=== PATIENT | male | born 1950 | race Hispanic/Latino ===

== ENCOUNTER 2018-06-05 11:16 | Emergency (ER) | payer MEDICARE ==
[2018-06-05 11:34] VITALS: BP 115/72
== END 2018-06-05 13:00 | disposition left against medical advice (07) ==
LOC: ED 11:16
DX: R05 Cough (principal); Z53.21 Procedure and treatment not carried out due to patient leaving prior to being seen by health care provider

== ENCOUNTER 2019-05-27 19:29 | Emergency (ER) | payer MEDICARE | END 2019-05-27 20:00 | disposition left against medical advice (07) | LOC: ED 19:29 | DX: H92.01 Otalgia, right ear (principal); Z53.21 Procedure and treatment not carried out due to patient leaving prior to being seen by health care provider ==

== ENCOUNTER 2020-06-02 21:55 | Emergency (ER) | payer MEDICARE ==
[2020-06-02] MEDS ORDERED: SODIUM CHLORIDE 0.9% 1000 ML 1,000 ML IV ONE (21:57)
[2020-06-02] MEDS ORDERED: ONDANSETRON 4 MG/2 ML INJ IV ONE (21:57)
[2020-06-02] MEDS ORDERED: ONDANSETRON 4 MG/2 ML INJ ONE (21:59)
--- NOTE | 2020-06-02 22:05 | Emergency Department Report ---
ED Alcohol HPI - General Chief Complaint: Altered Mental Status Stated Complaint: AMS Time Seen by Provider: 06/02/20 21:57 Source: patient, EMS Mode of arrival: Stretcher Limitations: Altered Mental Status - History of Present Illness Initial Comments: This is a 70-year-old male with history of COPD and abdominal hernia who presents with decreased responsiveness. Patient drank 5 beers today. He significant other told EMS that he became less responsive. He was found on the floor at local [facility] by EMS lethargic. Blood glucose was normal. Room air saturation 96% on room air. He does not require home oxygen. Patient awakened slightly in the ambulance. He gave EMS a brief history. Patient is now somnolent. MD Complaint: alcohol intoxication Last Drink: just [employer] Recent Trauma: No Associated Symptoms: other (Decreased responsiveness) - Related Data Previous Rx's Medication Instructions Recorded Last Taken Type Acetaminophen/Codeine [Tylenol 1 tab PO Q6H PRN #10 tab 03/31/20 Unknown Rx /Codeine # 3 tab] Menthol/Camphor [[place] 1 applicatio TP BID #50 oint...g. 03/31/20 Unknown Rx Ointment] methOCARBAMOL [Robaxin TAB] 500 mg PO BID PRN #14 tab 03/31/20 Unknown Rx Allergies Allergy/AdvReac Type Severity Reaction Status Date / Time cephalexin [From Keflex] Allergy Itching Verified 06/05/18 11:30 diphenhydramine Allergy Itching Verified 06/05/18 11:30 [From Benadryl] erythromycin base Allergy Itching Verified 06/05/18 11:30 ED Review of Systems ROS: Stated complaint: AMS Other details as noted in HPI Comment: Unobtainable due to pts medical conditions (Altered mental status, acute intoxication) ED Past Medical Hx - Past Medical History Previous Medical History?: Yes Hx COPD: Yes Additional medical history: Back injury/pain - Surgical History Past Surgical History?: Yes Hx Appendectomy: Yes Additional Surgical History: partial removal of lung/ right arm/ t&a - Social History Smoking Status: Current Every Day Smoker Substance Use Type: Alcohol, Prescribed - Medications Home Medications: Home Medications Medication Instructions Recorded Confirmed Last Taken Type Acetaminophen/Codeine [Tylenol 1 tab PO Q6H PRN #10 tab 03/31/20 Unknown Rx /Codeine # 3 tab] Menthol/Camphor [[place] 1 applicatio TP BID #50 oint...g. 03/31/20 Unknown Rx Ointment] methOCARBAMOL [Robaxin TAB] 500 mg PO BID PRN #14 tab 03/31/20 Unknown Rx ED Physical Exam - General Limitations: Altered Mental Status General appearance: appears intoxicated, lethargic, other (Rolling around in bed purposeful movement) - Head Head exam: Present: atraumatic, normocephalic - Eye Eye exam: Present: PERRL, conjunctival injection - ENT ENT exam: Present: normal orophraynx, mucous membranes moist - Neck Neck exam: Present: normal inspection, full ROM - Respiratory Respiratory exam: Present: wheezes, other (Posterior back: Right lower base wheezes). Absent: respiratory distress, rales, rhonchi, stridor, accessory muscle use, decreased breath sounds, prolonged expiratory - Cardiovascular Cardiovascular Exam: Present: regular rate, normal rhythm, normal heart sounds. Absent: systolic murmur, diastolic murmur - GI/Abdominal GI/Abdominal exam: Present: soft, other (Obese abdomen). Absent: distended, tenderness, guarding, rebound - Extremities Exam Extremities exam: Present: normal inspection - Neurological Exam Neurological exam: Present: altered - Psychiatric Psychiatric exam: Present: flat affect - Skin Skin exam: Present: warm, dry, intact, normal color ED Course Vital Signs 06/02/20 06/02/20 06/02/20 22:03 22:08 22:15 Temperature 97.2 F L Pulse Rate 72 69 Respiratory 16 15 Rate Blood Pressure 100/60 104/59 O2 Sat by Pulse 89 91 88 Oximetry 06/02/20 06/02/20 06/02/20 22:30 22:38 23:15 Temperature Pulse Rate 65 63 Respiratory 13 16 Rate Blood Pressure 101/74 94/54 O2 Sat by Pulse 95 92 95 Oximetry 06/02/20 06/03/20 23:45 01:48 Temperature Pulse Rate 60 Respiratory 14 Rate Blood Pressure 98/51 98/58 O2 Sat by Pulse 95 93 Oximetry - Reevaluation(s) Reevaluation #1: 06/02/20 22:07 Nurse reports to me that patient is now awake. He is requesting pain medication. He informed the nurse that he right drink 3-4 beers. Reevaluation #2: 06/02/20 22:26 Nurse informed me that patient had room air oxygen saturation 84%. This level is hypoxic. On 2 L nasal cannula, repeat blood oxygen saturation 93% which is improved. Patient easily arousable. When asked to change position, he hien robles. ED Medical Decision Making - Lab Data Result diagrams: 06/02/20 22:02 06/02/20 22:02 Laboratory Results - last 24 hr 06/02/20 06/02/20 06/02/20 22:02 22:02 22:02 WBC 7.4 RBC 4.37 Hgb 14.4 Hct 42.8 MCV 98 H MCH 33 H MCHC 34 RDW 13.8 Plt Count 195 Lymph % (Auto) 19.9 [place] % (Auto) 9.1 H Eos % (Auto) 4.6 H Baso % (Auto) 0.8 Lymph # 1.5 [place] # 0.7 Eos # 0.3 Baso # 0.1 Seg Neutrophils % 65.6 Seg Neutrophils # 4.8 Sodium 136 L Potassium 3.7 Chloride 98.0 Carbon Dioxide 20 L Anion Gap 22 BUN 6 L Creatinine 0.8 Estimated GFR > 60 BUN/Creatinine Ratio 8 Glucose 134 H Calcium 9.1 Total Bilirubin 0.20 AST 21 ALT 23 Alkaline Phosphatase 69 Total Protein 6.6 Albumin 3.7 L Albumin/Globulin Ratio 1.3 Plasma/Serum Alcohol 0.22 H - EKG Data -: EKG Interpreted by Co EKG shows normal: sinus rhythm, axis, intervals, ST-T waves Rate: normal - EKG Data 06/02/20 22:35 EKG interpreted by la EKG obtained 2228 Normal sinus rhythm rate 60 bpm normal axis normal intervals poor R wave progression anterior leads QS complexes V1 V2 no ST elevation nonischemic T wave pattern - Medical Decision Making Patient presents with acute alcohol intoxication. Patient did not have syncopal episode. He did have decreased level of consciousness. Blood alcohol level 0.22. Patient will be discharged once he is awake and ambulatory. Critical care attestation.: If time is entered above; I have spent that time in minutes in the direct care of this critically ill patient, excluding procedure time. ED Disposition Clinical Impression: Acute alcohol intoxication Disposition: DC-01 TO HOME OR SELFCARE Is pt being admited?: No Does the pt Need Aspirin: No Condition: Stable Instructions: Alcohol Intoxication (ED) Referrals: MARY [facility] [Other] - 3-5 Days
[2020-06-02 22:09] LABS: Basophils # (Auto) 0.1 K/mm3 (0.0-0.1); Basophils % (Auto) 0.8 % (0.0-1.8); Eosinophils # (Auto) 0.3 K/mm3 (0.0-0.4); Eosinophils % (Auto) 4.6 % (0.0-4.3); Hematocrit 42.8 % (35.5-45.6); Hemoglobin 14.4 gm/dl (11.8-15.2); Lymphocytes # (Auto) 1.5 K/mm3 (1.2-5.4); Lymphocytes % (Auto) 19.9 % (13.4-35.0); Mean Corpuscular HGB Conc 34 % (32-34); Mean Corpuscular Volume 98 fl (84-94); Monocytes # (Auto) 0.7 K/mm3 (0.0-0.8); Monocytes % (Auto) 9.1 % (0.0-7.3); Platelet Count 195 K/mm3 (140-440); Red Blood Count 4.37 M/mm3 (3.65-5.03); Red Cell Distribution Width 13.8 % (13.2-15.2)
[2020-06-02 22:32] LABS: Alanine Aminotransferase 23 units/L (7-56); Albumin 3.7 g/dL (3.9-5); BUN/Creatinine Ratio 8; Blood Urea Nitrogen 6 mg/dL (9-20); Calcium 9.1 mg/dL (8.4-10.2); Hemolysis Index 14
[2020-06-03 06:37] VITALS: BP 95/48
== END 2020-06-03 06:10 | disposition home or self-care (01) ==
LOC: ED 21:55
DX: F10.129 Alcohol abuse with intoxication, unspecified (principal); J44.9 Chronic obstructive pulmonary disease, unspecified; F17.200 Nicotine dependence, unspecified, uncomplicated; R41.82 Altered mental status, unspecified; Z90.49 Acquired absence of other specified parts of digestive tract; Z98.890 Other specified postprocedural states; Z79.899 Other long term (current) drug therapy; Z88.8 Allergy status to other drugs, medicaments and biological substances
CPT/HCPCS: 36415; 80053; 85025; 93005; 96361; 96374; 99284; J2405; J7030; 80320; G0480

== ENCOUNTER 2020-09-11 20:07 | Emergency (ER) | payer MEDICARE ==
[2020-09-11 20:43] VITALS: BP 122/84
== END 2020-09-12 03:16 | disposition left against medical advice (07) ==
LOC: ED 20:07
DX: M25.531 Pain in right wrist (principal); Z53.21 Procedure and treatment not carried out due to patient leaving prior to being seen by health care provider

== ENCOUNTER 2021-05-21 12:52 | Emergency (ER) | payer MEDICARE, MEDICAID ==
[2021-05-21 13:15] VITALS: BP 113/81
--- NOTE | 2021-05-21 13:37 | XRay Report ---
CHEST 2 VIEWS INDICATION: Chest Pain. COMPARISON: None FINDINGS: Support devices: None. Heart: Borderline to mild cardiomegaly Lungs/pleura: Underlying emphysematous changes are suspected. Surgical sutures are noted in the left upper lobe, correlate with history. No evidence for acute infiltrate, pleural effusion or pneumothor ax. Additional findings: None. IMPRESSION: No acute findings. COPD. Borderline heart size. Signer Name: Zack Valles Jr, MD Signed: 05/21/2021 1:32 PM Workstation Name: [id number]
[2021-05-21 14:17] LABS: Basophils % (Auto) 0.7 % (0.0-1.8); Eosinophils # (Auto) 0.3 K/mm3 (0.0-0.4); Hematocrit 46.7 % (35.5-45.6); Hemoglobin 15.6 gm/dl (11.8-15.2); Lymphocytes # (Auto) 1.1 K/mm3 (1.2-5.4); Lymphocytes % (Auto) 15.9 % (13.4-35.0); Mean Corpuscular HGB Conc 33 % (32-34); Mean Corpuscular Volume 99 fl (84-94); Monocytes # (Auto) 0.7 K/mm3 (0.0-0.8); Monocytes % (Auto) 10.2 % (0.0-7.3); Platelet Count 200 K/mm3 (140-440); Red Blood Count 4.72 M/mm3 (3.65-5.03)
[2021-05-21 14:21] LABS: Alanine Aminotransferase 27 units/L (7-56); Albumin 4.2 g/dL (3.9-5); BUN/Creatinine Ratio 14; Blood Urea Nitrogen 11 mg/dL (9-20); Calcium 9.2 mg/dL (8.4-10.2); Hemolysis Index 11
[2021-05-21 14:25] LABS: INR 0.89 (0.87-1.13); Partial Thromboplastin Time 28.2 Sec. (24.2-36.6)
--- NOTE | 2021-05-21 15:07 | Emergency Department Report ---
Blank Doc - Documentation Documentation: 70-year-old male that presents with shortness of breath and chest tightness. Patient has history of COPD. 1- This is a initial triage assessment/medical screening only. Full assessment and work-up will be completed once the patient is in proper hospital gown, ED bed and in a private room setting. This initial assessment/diagnostic orders/clinical plan/ treatment(s) is/are subject to change based on pt's health status, clinical progression and re-assessment by fellow clinical providers in the ED. Further treatment and workup at subsequent clinical providers discretion. Patient/guardians urged not to elope from ED as their condition may be serious if not clinically assessed and managed. 2-cardiac work-up
== END 2021-05-22 18:00 | disposition left against medical advice (07) ==
LOC: ED 12:52
DX: R06.02 Shortness of breath (principal); Z53.21 Procedure and treatment not carried out due to patient leaving prior to being seen by health care provider
CPT/HCPCS: 36415; 71046; 80053; 83735; 83880; 84484; 85025; 85610; 85730

== ENCOUNTER 2022-04-30 16:54 | Emergency (ER) | payer MEDICARE ==
[2022-04-30] MEDS ORDERED: IPRATROPIUM 0.02% NEBU 2.5 ML IH ONE (17:58)
[2022-04-30] MEDS ORDERED: ALBUTEROL 2.5 MG/3 ML NEBU IH ONE (17:58)
[2022-04-30] MEDS ORDERED: methylPREDNISolone Sod Succinate 125 MG/2 ML INJ IV ONE (17:58)
[2022-04-30] MEDS ORDERED: fentaNYL 100 MCG/2 ML INJ IV ONE (17:59)
--- NOTE | 2022-04-30 18:24 | XRay Report ---
CHEST 1 VIEW 04/30/2022 6:06 PM INDICATION / CLINICAL INFORMATION: Dyspnea. COMPARISON: 05/21/2021. FINDINGS: SUPPORT DEVICES: None. HEART / MEDIASTINUM: Stable. LUNGS / PLEURA: Mild opacity at the lung bases bilaterally. No pneumothorax. ADDITIONAL FINDINGS: No significant additional findings. IMPRESSION: Mild bibasilar opacity. Atelectasis/vascular congestion versus developing infiltrate. Signer Name: Ezio Cruz MD Signed: 04/30/2022 6:19 PM Workstation Name: [id number]
[2022-04-30 19:41] LABS: Basophils % (Auto) 0.4 % (0.0-1.8); Eosinophils # (Auto) 0.2 K/mm3 (0.0-0.4); Eosinophils % (Auto) 3.4 % (0.0-4.3); Hematocrit 42.5 % (35.5-45.6); Hemoglobin 14.2 gm/dl (11.8-15.2); Lymphocytes # (Auto) 1.3 K/mm3 (1.2-5.4); Lymphocytes % (Auto) 19.6 % (13.4-35.0); Mean Corpuscular HGB Conc 33 % (32-34); Mean Corpuscular Volume 93 fl (84-94); Monocytes # (Auto) 0.7 K/mm3 (0.0-0.8); Monocytes % (Auto) 10.2 % (0.0-7.3); Platelet Count 198 K/mm3 (140-440); Red Blood Count 4.55 M/mm3 (3.65-5.03); Red Cell Distribution Width 14.2 % (13.2-15.2)
[2022-04-30 19:50] LABS: INR 0.86 (0.87-1.13)
[2022-04-30 19:55] LABS: Creatine Kinase MB 2.5 ng/mL (0.0-4.0)
[2022-04-30 19:57] LABS: Alanine Aminotransferase 21 units/L (7-56); Albumin 4.2 g/dL (3.9-5); BUN/Creatinine Ratio 9; Blood Urea Nitrogen 8 mg/dL (9-20); Calcium 9.4 mg/dL (8.4-10.2); Hemolysis Index 7
--- NOTE | 2022-04-30 20:18 | Emergency Department Report ---
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 USES O2 AT HOME, RAN OUT, NEXT DE LIVERY NEXT WEEK. HAS NOT BEEN ABLE TO URINATE FOR 24 HOURS. MD Complaint: shortness of breath -: Gradual, days(s) Improves With: oxygen Worsens With: nothing Known History Of: COPD - Related Data Previous Rx's Medication Instructions Recorded Last Taken Type Acetaminophen/Codeine [Tylenol 1 tab PO Q6H PRN #10 tab 03/31/20 Unknown Rx /Codeine # 3 tab] Menthol/Camphor [[place] 1 applicatio TP BID #50 oint...g. 03/31/20 Unknown Rx Ointment] methOCARBAMOL [Robaxin TAB] 500 mg PO BID PRN #14 tab 03/31/20 Unknown Rx Allergies Allergy/AdvReac Type Severity Reaction Status Date / Time cephalexin [From Keflex] Allergy Itching Verified 04/30/22 17:15 diphenhydramine Allergy Itching Verified 04/30/22 17:15 [From Benadryl] erythromycin base Allergy Itching Verified 04/30/22 17:15 ED Review of Systems ROS: Stated complaint: DIFFICULTY BREATHING Other details as noted in HPI Constitutional: denies: chills, fever Eyes: denies: eye pain, eye discharge, vision change ENT: denies: ear pain, throat pain Respiratory: denies: cough, shortness of breath, wheezing Cardiovascular: denies: chest pain, palpitations Endocrine: no symptoms reported Gastrointestinal: denies: abdominal pain, nausea, diarrhea Genitourinary: denies: urgency, dysuria Musculoskeletal: denies: back pain, joint swelling, arthralgia Skin: denies: rash, lesions Neurological: denies: headache, weakness, paresthesias Psychiatric: denies: anxiety, depression Hematological/Lymphatic: denies: easy bleeding, easy bruising ED Past Medical Hx - Past Medical History Previous Medical History?: No Hx Hypertension: No Hx COPD: Yes Additional medical history: Back injury/pain - Surgical History Hx Appendectomy: Yes Additional Surgical History: partial removal of lung/ right arm/ t&a - Social History Smoking Status: Current Every Day Smoker Substance Use Type: None - Medications Home Medications: Home Medications Medication Instructions Recorded Confirmed Last Taken Type Acetaminophen/Codeine [Tylenol 1 tab PO Q6H PRN #10 tab 03/31/20 Unknown Rx /Codeine # 3 tab] Menthol/Camphor [[place] 1 applicatio TP BID #50 oint...g. 03/31/20 Unknown Rx Ointment] methOCARBAMOL [Robaxin TAB] 500 mg PO BID PRN #14 tab 03/31/20 Unknown Rx ED Physical Exam - General Limitations: No Limitations General appearance: alert, in no apparent distress - Head Head exam: Present: atraumatic, normocephalic - Eye Eye exam: Present: normal appearance - ENT ENT exam: Present: mucous membranes moist - Neck Neck exam: Present: normal inspection - Respiratory Respiratory exam: Present: wheezes. Absent: respiratory distress - Cardiovascular Cardiovascular Exam: Present: regular rate, normal rhythm. Absent: systolic murmur, diastolic murmur, rubs, gallop - GI/Abdominal GI/Abdominal exam: Present: soft, normal bowel sounds - Rectal Rectal exam: Present: deferred - Extremities Exam Extremities exam: Present: normal inspection - Back Exam Back exam: Present: normal inspection - Neurological Exam Neurological exam: Present: alert, oriented X3 - Psychiatric Psychiatric exam: Present: normal affect, normal mood - Skin Skin exam: Present: warm, dry, intact, normal color. Absent: rash ED Course Vital Signs 04/30/22 04/30/22 04/30/22 17:13 18:45 18:55 Temperature 98.8 F Pulse Rate 72 Pulse Rate [ 78 Bilateral Throughout] Respiratory 18 Rate Respiratory 18 Rate [Bilateral Throughout] Blood Pressure 124/88 [Left] O2 Sat by Pulse 99 98 Oximetry ED Medical Decision Making - Lab Data Result diagrams: 04/30/22 19:12 04/30/22 19:12 - Radiology Data Radiology results: report reviewed, image reviewed - Medical Decision Making x ry showed possible infilt, rt givens steriods and o2 sat 95 no distress , retrntion noted , guerra inn , pt wanted to leave, and take off the guerra Critical care attestation.: If time is entered above; I have spent that time in minutes in the direct care of this critically ill patient, excluding procedure time. ED Disposition Clinical Impression: SOB (shortness of breath), COPD exacerbation, Urinary retention Disposition: 01 HOME / SELF CARE / HOMELESS Is pt being admited?: No Does the pt Need Aspirin: No Condition: Stable Instructions: Chronic Obstructive Pulmonary Disease (ED), Asthma, Adult, [id number], How to Use a Nebulizer, Adult, Chronic Obstructive Pulmonary Disease
[2022-04-30 20:37] VITALS: BP 105/65
--- NOTE | 2022-05-01 13:48 | Electrocardiograph Report ---
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
== END 2022-04-30 20:30 | disposition home or self-care (01) ==
LOC: ED 16:54
DX: J44.9 Chronic obstructive pulmonary disease, unspecified (principal); R06.02 Shortness of breath; R33.9 Retention of urine, unspecified; Z98.890 Other specified postprocedural states; F17.290 Nicotine dependence, other tobacco product, uncomplicated; Z88.1 Allergy status to other antibiotic agents; Z88.8 Allergy status to other drugs, medicaments and biological substances
CPT/HCPCS: 36415; 51702; 71045; 80053; 82140; 82550; 82553; 83690; 84484; 85025; 85610; 93005; 94640; 96374; 96375; 99284; J2930; J3010; 94644